=== PATIENT | female | born 1995 | race Caucasian/White ===

== ENCOUNTER → 2017-02-02 | Outpatient (CLI) | payer OTHER ==
[2017-02-02 16:22] LABS: BASOPHILS % (AUTO) 0.4 % (0.2-1.0); EOSINOPHILS % (AUTO) 0.9 % (0.9-2.9); HEMATOCRIT 37.5 % (36.0-47.0); HEMOGLOBIN 12.7 g/dL (12.0-16.0); LYMPHOCYTES # (AUTO) 2.2 X10^3/uL (1.3-2.9); MEAN CORPUSCULAR HEMOGLOBIN 26.3 pg (27.0-34.0); MEAN CORPUSCULAR HGB CONC 33.9 g/dL (33.0-35.0); MEAN CORPUSCULAR VOLUME 77.5 fL (80.0-100.0); MONOCYTES # (AUTO) 0.3 x10^3/uL (0.3-0.8); MONOCYTES % (AUTO) 5.3 % (0.0-13.0); NEUTROPHILS # (AUTO) 2.2 x10^3/uL (2.2-4.8); NEUTROPHILS % (AUTO) 47.4 % (42.0-75.0); PLATELET COUNT 153 X10^3/uL (150.0-450.0); RED BLOOD COUNT 4.84 X10^6/uL (3.5-5.4); RED CELL DISTRIBUTION WIDTH 13.6 % (11.6-16.5); WHITE BLOOD COUNT 4.7 X10^3/uL (3.6-10.0)
[2017-02-02 16:57] LABS: ALANINE AMINOTRANSFERASE 34 Units/L (12-78); ALBUMIN 3.6 g/dL (3.4-5.0); ALKALINE PHOSPHATASE 97 Units/L (46-116); ASPARTATE AMINO TRANSFERASE 30 Units/L (15-37); BLOOD UREA NITROGEN 4 mg/dL (7-18); CALCIUM 9.4 mg/dL (8.5-10.1); CARBON DIOXIDE 27.5 mmol/L (21-32); CHLORIDE 106 mmol/L (98-107); COR NA(FOR HYPERGLY) 141 mmol/L (136-145); CREATININE 0.49 mg/dL (0.55-1.02); SODIUM 141 mmol/L (136-145); TOTAL PROTEIN 6.8 g/dL (6.4-8.2); TSH (3RD GENERATION) < 0.007 uIU/mL (0.358-3.74); eGFR BLACK RACES > 60 (>60); eGFR NON BLACK RACES > 60 (>60)
[2017-02-02 17:11] LABS: IRON 60 ug/dL (50-175); TOTAL IRON BINDING CAPACITY 245 ug/dL (250-450)
== END ==
LOC: LAB 15:43
PROVIDERS: ATTEND Nurse Practitioner Family
DX: R94.6 Abnormal results of thyroid function studies (principal); R53.83 Other fatigue
CPT/HCPCS: 36415; 80053; 82607; 82728; 82746; 83540; 83550; 83918; 84439; 84443; 84481; 85025

== ENCOUNTER → 2017-02-15 | Outpatient (CLI) | payer OTHER ==
--- NOTE | 2017-02-15 11:58 | US ---
History: New onset hyperthyroidism Study: Ultrasound thyroid Findings: High-resolution linear array real-time ultrasound of the thyroid is performed. The right lo be measures 4.8 x 2.0 x 3.0 cm. The left measures 4.6 x 1.7 x 2 2.0 cm. The isthmus measures approxim ately 4 mm in thickness. The gland is worse slightly irregular in contour with heterogeneous echo pat tern with no focal nodules. Impression: Mild thyromegaly. Reported By:
== END | disposition home or self-care (01) | DRG 645 ==
LOC: RAD 10:46
PROVIDERS: ATTEND Nurse Practitioner Family
DX: R94.6 Abnormal results of thyroid function studies (principal); E01.0 Iodine-deficiency related diffuse (endemic) goiter
CPT/HCPCS: 36415; 76536; 84439; 84481

== ENCOUNTER → 2017-06-28 | Outpatient (CLI) | payer OTHER ==
--- NOTE | 2017-06-28 15:30 | MRI ---
HISTORY: Migraine with aura Study: MRI brain with and without contrast Comparison: None Technique: Multisequence, multiplanar imaging of the brain was performed both before and after the ad ministration of 12 cc Omniscan. Findings: Imaging of the brain demonstrates the midline structures to be intact. There is no evidence of Chiari malformation. There is no intracranial hemorrhage, mass effect, or midline shift. Diffusion-weighted images demonstrate no restricted diffusion to suggest acute or early subacute infarct. The ventricle s are symmetric and nondilated. No extra-axial fluid collection is identified. There is no focal pare nchymal signal abnormality. The basilar cisterns are patent. The bilateral cerebellopontine angles ar e unremarkable. Postcontrast images demonstrate no abnormal contrast enhancement within the brain. IMPRESSION: 1. Unremarkable MRI of the brain with and without contrast Reported By:
== END ==
LOC: RAD 14:16
PROVIDERS: ATTEND Nurse Practitioner Family
DX: G43.119 Migraine with aura, intractable, without status migrainosus (principal)
CPT/HCPCS: 70553

== ENCOUNTER → 2017-07-04 | Outpatient (CLI) | payer OTHER ==
--- NOTE | 2017-07-05 09:39 | NM ---
THYROID UPTAKE AND SCAN CLINICAL INDICATION: Abnormal TFT PROCEDURE: The patient received an oral dose of 200 uCi of Jeanette-123 and images were obtained at appro ximately 24 hours with markers on the chin and sternal notch. The I-123 uptake in the thyroid gland was calculated based on standard probe measurement at approximately 24 hours. COMPARISON: None FINDINGS: The thyroid gland is normal in position and configuration. Planar view suggests the thyroid is normal in size. Tracer distribution is homogeneous throughout the gland. The 24-hour I-123 thyroid uptake i s 13.9 % (normal = 10-30%). IMPRESSION: 1. 24-hour I-123 thyroid uptake is 13.9 % (normal = 10-30%). 2. Morphologically normal thyroid scan. Reported By:
== END ==
LOC: RAD 08:11
PROVIDERS: ATTEND Nurse Practitioner Family
DX: R94.6 Abnormal results of thyroid function studies (principal)
CPT/HCPCS: 78014; A9516